=== PATIENT | female | born 1950 ===

== ENCOUNTER 2022-01-05 07:00 | Day surgery (SDC) | payer OTHER ==
[~2022-01-05 07:00] MED LIST: ASA81 MG PO; CLONAZEPAM1 M1 PO; COZAAR25 MG PO; D3 + K2 DOTS 11 EACH PO; EVISTA60 MG PO; FOSAMAX70 MG PO; SYNTHROID75 MCG PO
== END 2022-01-05 12:55 | disposition home or self-care (01) ==
LOC: CIR.AMB 07:00
PROVIDERS: ATTEND Orthopaedic Surgery Hand Surgery
DX: M65.341 Trigger finger, right ring finger (principal); M65.321 Trigger finger, right index finger; Z88.2 Allergy status to sulfonamides; I10 Essential (primary) hypertension; E03.9 Hypothyroidism, unspecified; M19.90 Unspecified osteoarthritis, unspecified site; F41.9 Anxiety disorder, unspecified; R20.2 Paresthesia of skin; E78.5 Hyperlipidemia, unspecified